=== PATIENT | female | born 1955 | race Hispanic/Latino ===

== ENCOUNTER 2022-09-11 20:32 | Emergency (ER) | payer OTHER, MEDICARE ==
[~2022-09-11] VITALS: Ht 152.4 cm; Wt 84.4 kg
[2022-09-11] MEDS ORDERED: MORPHINE 2 MG SYG IVP ONE (21:00)
[2022-09-11] MEDS ORDERED: LIDOP TD (22:21)
[2022-09-11 23:13] VITALS: BP 168/58; PULSE 99; RESP 18
== END 2022-09-11 23:15 | disposition home or self-care (01) ==
LOC: EDH 20:32
DX: M54.50 Low back pain, unspecified (principal); I10 Essential (primary) hypertension; E11.9 Type 2 diabetes mellitus without complications; E78.00 Pure hypercholesterolemia, unspecified; Z90.49 Acquired absence of other specified parts of digestive tract; Z88.2 Allergy status to sulfonamides
CPT/HCPCS: 99285; 96374; 72131; 72110; J2270 ×2